=== PATIENT | female | born 1995 | race Two or more races ===

== ENCOUNTER 2025-04-23 14:48 | Emergency (ER) | payer SELFPAY ==
[~2025-04-23] VITALS: Ht 165.1 cm; Wt 72.7 kg
--- NOTE | 2025-04-23 15:53 | DVH ---
LIMITED OB ULTRASOUND > 14 WKS: HISTORY: abdominal pain and vaginal bleeding TECHNIQUE: Multiple real-time grayscale images of the gravid uterus with duplex Doppler color flow an d M-mode spectral analysis. TRANSDUCER: Transabdominal COMPARISON: None FINDINGS: IUP single live fetus at 21 weeks and 2 days based on composite averages of the BPD, head circumferen ce, abdominal circumference and femur length Estimated weight 425 grams heart rate 147 beats per minute HERMILA is subjectively within normal limits. Deepest pocket measures 3.1 cm Cervix is closed and measures 3.5 cm Breech Presentation Posterior Placenta without previa or abruption. IMPRESSION: IUP single live fetus at 21 weeks and 2 days AUA corresponding to an CHELY of 09/01/2025
[2025-04-23 16:15] LABS: Hematocrit 35.2 % (36.0-46.0); Hemoglobin 12.9 g/dL (12.2-16.2); Mean Corpuscular Hemoglobin 32.5 pg (28.0-32.0); Mean Corpuscular Volume 88.9 fL (80.0-100.0); Nucleated Red Blood Cells % 0.0 %
[2025-04-23 16:19] LABS: Chloride 105 mmol/L (98-107); Sodium 139 mmol/L (136-145)
[2025-04-23 16:20] LABS: Anion Gap 11 (5-15); Carbon Dioxide 23 mmol/L (20-31)
[2025-04-23 16:22] LABS: Potassium 3.2 mmol/L (3.5-5.1)
--- NOTE | 2025-04-23 16:22 | ED.PDOC ---
ACCOUNT ADMINISTRATOR HPI Comments 29 y/o F, presents to the ED for CC of vaginal bleeding. Patient states, she began to experience sudden onset vaginal bleeding x2days. Patient reports, vaginal bleeding began as spotting and has now progressed being dark and clotted in appearance. At this time patient, c/o abdominal cramping. Patient denies recent intercourse, trauma, injury, fall, nausea, or vomiting. No other symptoms or modifying factors are present at this time. Chief Complaint: Vaginal Bleed Time Seen by MD: 16:00 Reviewed Notes: Nurses Notes, Medications, Allergies Allergies: Coded Allergies: No Known Drug Allergy (Verified Allergy, Unknown, 04/23/25) Information Source: Patient Mode of Arrival: Ambulatory Timing: Minutes Prehospital treatment: None Severity: Moderate Vaginal Discharge: None Vaginal Lesions: None Bleeding Quality: Dark, Clotted Vaginal Mass: None Onset Of Mass/Bleeding: Spontaneous Sexual Activity: Last Consensual [place]: Unknown Control: None History of: Current Blood Type: Unknown Associated Signs and Symptoms: Vaginal Bleeding, Cramping Past Medical History PAST MEDICAL HISTORY: Denies Surgical History: Denies all surgeries MEDICAL CODER History: Denies all MEDICAL CODER Hx Family History Family History: Unknown Social History Smoker: Non-Smoker Alcohol: Denies ETOH Use Drugs: Denies Drug Use Lives In: Home Constitutional: denies: chills, diaphoresis, fatigue, fever, malaise, sweats, weakness, others EENTM: denies: blurred vision, double vision, ear bleeding, ear discharge, ear drainage, ear pain, ear ringing, eye pain, eye redness, hearing loss, mouth pain, mouth swelling, nasal discharge, nose bleeding, nose congestion, nose pain, photophobia, tearing, throat pain, throat swelling, voice changes, others Respiratory: denies: cough, hemoptysis, orthopnea, SOB at rest, shortness of breath, SOB with excertion, stridor, wheezing, others Cardiovascular: denies: chest pain, dizzy spells, diaphoresis, Dyspnea on exertion, edema, irregular heart beat, left arm pain, lightheadedness, palpitations, PND, syncope, others Gastrointestinal: denies: abdomen distended, abdominal pain, blood streaked bowels, constipated, diarrhea, dysphagia, difficulty swallowing, hematemesis, melena, nausea, poor appetite, poor fluid intake, rectal bleeding, rectal pain, vomiting, others Genitourinary: reports: abnormal vagina bleeding, others (abdominal cramping); denies: burning, dyspareunia, dysuria, flank pain, frequency, hematuria, incontinence, pain, , vagina discharge, urgency Neurological: denies: dizziness, fainting, headache, left sided numbness, left sided weakness, numbness, paresthesia, pre-existing deficit, right sided numbness, right sided weakness, seizure, speech problems, tingling, tremors, weakness, others Musculoskeletal: denies: back pain, gout, joint pain, joint swelling, muscle pain, muscle stiffness, neck pain, others Integumetry: denies: bruises, change in color, change in hair/nails, dryness, laceration, lesions, lumps, rash, wounds, others Allergic/Immunocompromised: denies: Difficulty Healing, Frequent Infections, Hives, Itching, others Hematologic/Lymphatic: denies: anemia, blood clots, easy bleeding, easy bruising, swollen glands, others Endocrine: denies: excessive hunger, excessive sweating, excessive thirst, excessive urination, flushing, intolerance to cold, intolerance to heat, unexplained weight gain, unexplained weight loss, others Psychiatric: denies: anxiety, bipolar disorder, depression, hopeless, panic disorder, schizophrenia, sleepless, suicidal, others All Other Systems: Reviewed and Negative Physical Exam General Appearance: No Apparent Distress, Normal HEENT: Normal ENT Inspection, Pharynx Normal Neck: Full Range of Motion, Non-Tender, Normal, Normal Inspection Respiratory: Chest Non-Tender, Lungs Clear, No Accessory Muscle Use, No Respiratory Distress, Normal Breath Sounds Cardiovascular: No Edema, No Murmur, No Gallop, Normal Peripheral Pulses, Regular Rate/Rhythm Breast Exam: Deferred Gastrointestinal: No Organomegaly, Non Tender, No Pulsatile Mass, Normal Bowel Sounds, Soft Genitalia: Deferred Pelvic: Deferred Rectal: Deferred Extremities: No calf tenderness, Normal capillary refill, Normal inspection, Normal range of motion, Non-tender, No pedal edema Musculoskeletal : Apperance: Normal Neurologic: Alert, clerical proofreader II-XII nml as Tested, No Motor Deficits, Normal Affect, Normal Mood, No Sensory Deficits Cerebellar Function: Normal Reflexes: Normal Skin: Dry, Normal Color, Warm Lymphatic: No Adenopathy Was a procedure done? Was a procedure done?: No Differential Diagnosis (MEDICAL CODER) Vaginal Bleeding: - Incomplete, - Threatened X-Ray, Labs, Meds, VS Vital Signs Date Time Temp Pulse Resp B/P (MAP) Pulse Ox O2 Delivery O2 Flow Rate FiO2 04/23/25 14:49 98.3 96 16 103/68 74 98.3 Lab Test 04/23/25 15:54 Range/Units White Blood Count 7.5 4.4-10.8 10^3/uL Red Blood Count 3.96 L 4.0-5.20 10^6/uL Hemoglobin 12.9 12.2-16.2 g/dL Hematocrit 35.2 L 36.0-46.0 % Mean Corpuscular Volume 88.9 80.0-100.0 fL Mean Corpuscular Hemoglobin 32.5 H 28.0-32.0 pg Mean Corpuscular Hemoglobin Concent 36.5 H 32.0-36.0 g/dL Red Cell Distribution Width 12.3 11.8-14.3 % Platelet Count 363 140-450 10^3/uL Mean Platelet Volume 6.5 L 6.9-10.8 fL Neutrophils (%) (Auto) 63.4 37.0-80.0 % Lymphocytes (%) (Auto) 29.8 10.0-50.0 % Monocytes (%) (Auto) 5.3 0.0-12.0 % Eosinophils (%) (Auto) 1.0 0.0-7.0 % Basophils (%) (Auto) 0.5 0.0-2.0 % Neutrophils # (Auto) 4.8 1.6-8.6 10 ^3/uL Lymphocytes # (Auto) 2.2 0.4-5.4 10 ^3/uL Monocytes # (Auto) 0.4 0-1.3 10 ^3/uL Eosinophils # (Auto) 0.1 0-0.8 10 ^3/uL Basophils # (Auto) 0 0-0.2 10 ^3/uL Nucleated Red Blood Cells 0.0 % Sodium Level 139 136-145 mmol/L Potassium Level 3.2 L 3.5-5.1 mmol/L Chloride Level 105 98-107 mmol/L Carbon Dioxide Level 23 20-31 mmol/L Anion Gap 11 5-15 Blood Urea Nitrogen 8 L 9-23 mg/dL Creatinine 0.57 0.550-1.02 mg/dL Glomerular Filtration Rate Calc 126 >90 mL/min BUN/Creatinine Ratio 14.0 10.0-20.0 Serum Glucose 78 74-106 mg/dL Calcium Level 8.4 L 8.7-10.4 mg/dL Beta HCG, Quantitative 9464.1 H 1.5-4.2 mIU/mL [place] [id number] Ph: [phone] DIAGNOSTIC IMAGING Diagnostic Imaging Report : [id number] Signed PATIENT: KRISSY DEMPSEY ACCT: [id number] UNIT: [id number] : 1995 LOC: ER ROOM / BED: / AGE / SEX: 29 / F ADM STATUS: REG ER SERVICE [id number] ORDERING PHYSICIAN: ASIF KELLEY MD PROCEDURE(s): OBUS - OB ULTRASOUND COMP GTR 14 WKS REASON: abdominal pain and vaginal bleeding ORDER NUMBER(s): [id number], ACCESSION NUMBER(s): [id number] LIMITED OB ULTRASOUND > 14 WKS: HISTORY: abdominal pain and vaginal bleeding TECHNIQUE: Multiple real-time grayscale images of the gravid uterus with duplex Doppler color flow and M-mode spectral analysis. TRANSDUCER: Transabdominal COMPARISON: None FINDINGS: IUP single live fetus at 21 weeks and 2 days based on composite averages of the BPD, head circumference, abdominal circumference and femur length Estimated weight 425 grams heart rate 147 beats per minute HERMILA is subjectively within normal limits. Deepest pocket measures 3.1 cm Cervix is closed and measures 3.5 cm Breech Presentation Posterior Placenta without previa or abruption. IMPRESSION: IUP single live fetus at 21 weeks and 2 days AUA corresponding to an CHELY of 09/01/2025 ATED BY: WAI ERICKSON MD DICTATED DATE/TIME: 04/23/251550 SIGNED BY: WAI ERICKSON MD SIGNED DATE/TIME: 04/23/251550 CC: Time of 1ST Reevaluation: 16:30 Reevaluation 1ST: Unchanged Patient Education/Counseling: Diagnosis, Treatment Family Education/Counseling: Diagnosis, Treatment Departure 1 Departure Time of Disposition: 16:59 (Patient with threatened miscarriage. Will dischage patient home ) Impression: Primary Impression: Threatened miscarriage Disposition: HOME / SELF CARE / HOMELESS Condition: Stable Additional Instructions: You have a threatened miscarriage. Your beta hcg level today was 9700. Your ultrasound showed a live healthy fetus and healthy . You should follow up with OBGYN within three days to recheck your ultrasound. If your symptoms worsen or you have any other concerns then please return to the ER. Discharged With: Self Critical Care Note Critical Care Time?: No Stability Stability form required: No Heart Score Heart Score: Heart Score Response (Comments) Value History N/A 0 EKG N/A 0 Age N/A 0 Risk Factors N/A 0 Troponin N/A 0 Total 0 I personally scribed for ASIF KELLEY MD ([email or web address]) on 04/23/25 at 16:22. Electronically submitted by Cherrie Cabezas ([email or web address]). I personally scribed for ASIF KELLEY MD ([email or web address]) on 04/23/25 at 16:30. Electronically submitted by Cherrie Cabezas ([email or web address]). ASIF KELLEY MD Apr 23, 2025 16:22
[2025-04-23 16:23] LABS: Calcium 8.4 mg/dL (8.7-10.4)
[2025-04-23 16:25] LABS: BUN/Creatinine Ratio 14.0 (10.0-20.0); Glucose 78 mg/dL (74-106)
[2025-04-23 16:27] LABS: Blood Urea Nitrogen 8 mg/dL (9-23)
[2025-04-23 18:29] VITALS: BP 102/59; PULSE 83; RESP 18; TEMP 97.5; O2SAT 99
== END 2025-04-23 18:25 | disposition home or self-care (01) ==
LOC: ER 14:48
DX: O20.0 Threatened abortion (principal); Z3A.21 21 weeks gestation of pregnancy
CPT/HCPCS: 36415; 76805; 80048; 84702; 85025; 86900; 86901

== ENCOUNTER 2025-08-05 19:33 | Observation (INO) | payer MEDICAID, OTHER ==
[~2025-08-05] VITALS: Ht 165.1 cm; Wt 83.5 kg
--- NOTE | 2025-08-05 20:45 | DVH ---
OB ULTRASOUND, LIMITED CLINICAL INDICATION: No PNC for about 10 weeks TECHNIQUE: Multiple grayscale ultrasound and M-mode images were obtained of the pelvis for evaluation of intrauterine . COMPARISON: US OB ULTRASOUND COMP GTR 14 WKS on DOS: 04/23/25 FINDINGS: A single living fetus is seen in vertex presentation. Biparietal diameter: 8.85 cm (35 weeks, 5 days) Head Circumference: 31.39 cm (35 weeks, 1 days) Abdomen Circumference: 31.92 cm (35 weeks, 6 days) Femur Length: 6.94 cm (35 weeks, 4 days) Estimated weight: 2746 grams (+/- 412 grams). Placenta: Posterior. Grade 1 Amniotic fluid: Visibly normal. heart rate: 129 beats/min. A 4-chamber heart, stomach, bilateral kidneys, and urinary bladder grossly unremarkable. The cervical length is 2.9 cm and closed. Biophysical profile: 03/20 breathin movements: 2 tone: 2 Amniotic fluid volume: 2 IMPRESSION: 1. Single intrauterine with an estimated gestational age of 35 weeks, 4 days, corresponding to an estimated date of delivery of 09/05/2025. 2. Biophysical profile: 03/20
[2025-08-05] MEDS: TERBUTALINE SULFATE 1 MG/ML 1ML VIAL SC SCH (21:44)
--- NOTE | 2025-08-05 21:52 | DVHDS2 ---
Physician Discharge Progress N Final Diagnosis: False labor Secondary Diagnosis: Rh Negative / Little PNC Problems List: (1) 37 weeks gestation of (2) Rh negative status during (3) Limited care (4) Dehydration during (5) HPV (human papilloma virus) infection (6) Sickle cell trait in mother affecting (7) Hx of cosmetic surgery Commentary: Commentary TRIAGE Subjective 29 y/o (1,0,0,1,) with EDC of 08/25/2025 EGA 37w 1d presents to the Place with report of cramping pain for X2 days. Stated she had sexual intercourse two days ago. She reports normal movements, no VB, leakage of fluids, [place], vision changes or epigastric pain. No urinary symptoms Limited PNC Has not recieved any PNC since 27 weeks GA due to Insurance reasons Is Rh negative and has not received her Rhogham for this current Denies any illegal substance or IPV PMH: Sickle Cell Trait Carrier + HPV Pap Test PSH: Gastric Sleeve / Cosmetic Procedure Nose OBGYN: X1 Term #1 - 39 wks GA Male 2018 #2- Current ROS: Neurological: Unremarkable except as noted in Presenting problem/ CC above Respiratory: reports no respiratory symptom, no SOB Cardiovascular: no palpitation, chest pain or easy fatigue : No vaginal or urinary symptom Objective PE: A&O x3, NAD, well groomed. pleasant. Appropriate and normal mood and affect Respiration unlabored Heart and lungs sounds: normal Abdomen: Gravid, non-tender to palpation. Extremities: No edema VE: 1/Thick/ closed FHR baseline 120bpm with moderate variability Accelerations: 15 bpm X 15 bpm , Occasional prolonged acceleration Uterine palpation: Soft and non tender Contractions : every 3-5 min noted Assessment IUP at 37w 1d Uterine contractions Limited PNC Rh Negative / Not received Rhogham Dehydration Category I FHR tracing Plan Limited OB ultrasound P.O hydration IVF hydration Terbutaline 0.25 X3 dose PRN every 20 min apart lab work [facility] Condition on Discharge: Stable Disposition: Home Discharge Instructions: Diet: Regular Activity: No Restrictions, As Tolerated Medications: Terbutaline Follow Up Care: Discharge Statement: Re-evaluation done Received terbutaline 0.25 X2 doses IVF Hydration 1000 ML Contractions subsided Patient reported not feeling them Limited OB ultrasound Cephalic presentation Cervical Length 2.9 closed HERMILA 17.9 BPP 8/8 Breathing 2 Movement 2 Tone 2 Amniotic Fluid 2 Impression Single intrauterine AGA 35w4d Discharge patient to ED for her Rhogham Injection Once Rhogham received she can then be D/C to home Education in [facility] for F/U PNC Follow up with your OB Provider within 24 hours Pt advised to go to ER if pain persists or increases in intensity 3rd trimester emergency S&S FKC, PTL & pre-eclampsia precautions reviewed with patient advised to seek health care if any symptom including but not limited to any of the above. Visit Coding OBGYN Date of Service: Aug 05, 2025 Billing Provider: FOSTER PRESLEY CNM TREE INSPECTOR Common Visit Codes: 11574-BTGRWNSIPCY CARE DISCHARGE, 73461-GHCWTTP INP/OBS CARE (LOW) [facility] 21[facility]52
[2025-08-05 22:09] LABS: Alkaline Phosphatase 106 U/L (46-116); Anion Gap 8 (5-15); BUN/Creatinine Ratio 12.5 (10.0-20.0); Calcium 9.5 mg/dL (8.7-10.4); Carbon Dioxide 25 mmol/L (20-31); Chloride 103 mmol/L (98-107); Glucose 82 mg/dL (74-106); Potassium 4.1 mmol/L (3.5-5.1); Total Protein 6.1 g/dL (5.7-8.2)
[2025-08-05 22:10] LABS: Albumin 3.4 g/dL (3.2-4.8); Bilirubin, Total 0.3 mg/dL (0.2-1.0)
[2025-08-05] MEDS: LACTATED RINGER'S 1,000 ML IV ONE (22:10)
[2025-08-05] MEDS: LACTATED RINGER'S 1,000 ML IV SCH (22:11)
[2025-08-05 22:12] LABS: Alanine Aminotransferase < 9 U/L (7-40); Blood Urea Nitrogen 8 mg/dL (9-23); Sodium 136 mmol/L (136-145)
[2025-08-05 22:14] LABS: Urine Protein, UAD TRACE (Negative)
[2025-08-05 22:21] LABS: Hematocrit 36.7 % (36.0-46.0); Hemoglobin 13.0 g/dL (12.2-16.2); Mean Corpuscular Hemoglobin 30.9 pg (28.0-32.0); Mean Corpuscular Volume 87.0 fL (80.0-100.0); Nucleated Red Blood Cells % 0.2 %
[2025-08-05 22:22] LABS: INR 0.9 (0.9-1.15); Partial Thromboplastin Time 24.8 SEC (24.5-34.5); Prothrombin Time 9.6 sec (9.3-11.8)
[2025-08-05 22:39] LABS: Amphetamine Screen, Urine Neg (NEGATIVE); Barbiturate Scree,Urine Neg (NEGATIVE); Benzodiazephine Screen, Urine Neg (NEGATIVE); Cannabinoid Screen, Urine Neg (NEGATIVE); Cocaine Screen, Urine Neg (NEGATIVE); Opiate Scree,Urine Neg (NEGATIVE); Phencyclidine Screen, Urine Neg (NEGATIVE)
[2025-08-05] MEDS ORDERED: PREN1TAB71 PO (22:41)
[2025-08-05] MEDS ORDERED: CALC667C PO (22:42)
[2025-08-07 23:07] LABS: Chlamydia Trachomatis, NAA Negative (Negative); Neisseria gonorrhoeae, NAA Negative (Negative)
== END 2025-08-05 23:50 | disposition home or self-care (01) ==
LOC: LDRP 19:33
PROVIDERS: ADMIT Obstetrics & Gynecology; ATTEND Obstetrics & Gynecology
DX: O99.284 Endocrine, nutritional and metabolic diseases complicating childbirth (principal); E86.0 Dehydration; O99.02 Anemia complicating childbirth; D57.3 Sickle-cell trait; O26.893 Other specified pregnancy related conditions, third trimester; B97.7 Papillomavirus as the cause of diseases classified elsewhere; R79.1 Abnormal coagulation profile; R53.1 Weakness; Z3A.37 37 weeks gestation of pregnancy; Z67.91 Unspecified blood type, Rh negative; Z79.899 Other long term (current) drug therapy; Z98.890 Other specified postprocedural states
CPT/HCPCS: 36415; 59025; 76805; 76819; 80053; 80307; 81001; 81002; 83036; 85025; 85610; 85730; 86703; 86762; 86780; 86803; 86850; 86900; 86901; 87081; 87340; 87491; 87591; 94762; 96360; 96361; 96372; A4649; G0378; J3105

== ENCOUNTER 2025-08-05 23:53 | Emergency (ER) | payer MEDICAID, OTHER ==
[~2025-08-05] VITALS: Ht 165.1 cm; Wt 83.6 kg
[~2025-08-05 23:53] MED LIST: CALC667C PO; PREN1TAB71 PO
[2025-08-05 23:59] VITALS: BP 117/76; PULSE 77; RESP 18; TEMP 97.9; O2SAT 98
[2025-08-06] MEDS ORDERED: RHO (D) IMMUNE GLOBULIN 300 MCG INJ IM ONE (00:30)
--- NOTE | 2025-08-06 00:50 | ED.PDOC ---
History of Present Illness HPI Comments 29-year-old female presents from [facility] labor and delivery department for RhoGAM immunization. Patient is referred to the ED after being monitored and discharged from labor and delivery for onset of contractions during encounter, due to department not having RhoGAM immunization available. Patient is 36 weeks . She has no established care. She is O negative. Denies any further acute symptoms, such as vaginal bleeding. REVIEW OF SYSTEMS: General: No fever, no chills, HEENT: No neck pain, no blurred vision Cardiac: No chest pain. No palpitations. Lungs: No shortness of breath, GI: No abdominal pain, no vomiting Musculoskeletal: No joint pain , no back pain Skin: No rash, no wound Neuro: No headache, no dizziness, no syncope PHYSICAL EXAM: General: Awake, alert and oriented. No acute distress. Skin: Skin in warm, dry and intact without rashes or lesions. HEENT: The head is normocephalic and atraumatic. Conjunctivae are clear without exudates or hemorrhage. Sclera is non-icteric. Neck: Normal range of motion. No JVD. Cardiac: Regular rate Respiratory: No signs of respiratory distress. No Stridor. Gastrointestinal: abdomen Extremities: Upper and lower extremities are atraumatic in appearance without deformity. Neurological: The patient is awake, alert and oriented to person, place, and time with normal speech. Speech is clear. There is no facial asymmetry. Psychiatric: Appropriate mood and affect. Good judgement and insight. Chief Complaint: Time Seen by MD: 00:12 Reviewed Notes: Nurses Notes, Medications, Allergies Allergies: Coded Allergies: No Known Drug Allergy (Verified Allergy, Unknown, 08/05/25) Home Meds Reported Medications Calcium Acetate (Phosphate Bin (Calcium Acetate) 667 Mg Cap, PO DAILY for 30 Days, MG 08/05/25 Vit W/ Ferrous Fumara (PNV PLUS MULTIVI) Plus Tab, 1 TAB PO DAILY, TAB 08/05/25 Information Source: Patient, [facility] Medical Record Mode of Arrival: Ambulatory Severity: Moderate Timing: Hours Duration: Since onset Prehospital treatment: None Past Medical History PAST MEDICAL HISTORY: Denies Surgical History: Denies all surgeries BOX SEALING MACHINE FEEDER History: Denies all BOX SEALING MACHINE FEEDER Hx Family History Family History: Unknown Social History Smoker: Non-Smoker Alcohol: Denies ETOH Use Drugs: Denies Drug Use Lives In: Home Was a procedure done? Was a procedure done?: No Differential Dx Considerations may include: need for RhoGAM due to Rh negative mother X-Ray, Labs, Meds, VS Vital Signs Date Time Temp Pulse Resp B/P (MAP) Pulse Ox O2 Delivery O2 Flow Rate FiO2 08/05/25 23:59 97.9 77 18 117/76 98 97.9 Time of 1ST Reevaluation: 00:49 Reevaluation 1ST: Unchanged Patient Education/Counseling: Need For Follow Up Family Education/Counseling: No Family Present SEPSIS Sepsis Screen Date sepsis recognized/suspect: Aug 06, 2025 Time Sepsis recognized/suspect: 0004 Recent Procedure: No On Antibiotic Therapy: No Respiratory Rate >20: No Heart Rate >90: No Temp<36 C (96.8 F) or >38.3 C: No SBP <90 or MAP <65 mmHG: No New Acute Mental Status Change: No Is the patient on CPAP, BIPAP,: No Vital Signs Date Time Temp Pulse Resp B/P (MAP) Pulse Ox O2 Delivery O2 Flow Rate FiO2 08/05/25 23:59 97.9 77 18 117/76 98 97.9 Departure 1 Departure Time of Disposition: 01:31 Impression: Primary Impression: 37 weeks gestation of Additional Impression: Need for rhogam due to Rh negative mother Comments 29-year-old female with no care transfer from L & D to the emergency department for RhoGAM immunization. Patient was monitored in L & D and discharge, stable. RhoGAM not available in L & D department. Patient 37 weeks gestational age, O negative. She denied any vaginal bleeding. Critical Care Note Critical Care Time?: No Stability Stability form required: No Heart Score Heart Score: Heart Score Response (Comments) Value History N/A 0 EKG N/A 0 Age N/A 0 Risk Factors N/A 0 Troponin N/A 0 Total 0 I personally scribed for ALLAN OWENS MD ([email or web address]) on 08/06/25 at 00:50. Electronically submitted by Philippe Benjamin ([email or web address]). I personally scribed for ALLAN OWENS MD ([email or web address]) on 08/06/25 at 05:19. Electronically submitted by Philippe Benjamin [email or web address]). ALLAN OWENS MD Aug 06, 2025 00:50
== END 2025-08-06 03:15 | disposition home or self-care (01) ==
LOC: ER 08-06
DX: O09.33 Supervision of pregnancy with insufficient antenatal care, third trimester (principal); Z3A.37 37 weeks gestation of pregnancy; Z79.899 Other long term (current) drug therapy